=== PATIENT | female | born 1975 | race Caucasian/White ===

== ENCOUNTER → 2017-09-16 | Outpatient (CLI) | payer OTHER ==
[~2017-09-16] MED LIST: RT-ALBUTEROL SULF 2.5 MG/3 ML PRE-MIX VIAL INH ONE; RT-ALBUTEROL SULF 2.5 MG/3 ML PRE-MIX VIAL ONE
--- NOTE | 2017-09-16 12:57 | Diagnostic Imaging Report ---
EXAMINATION: Left knee radiographs, 2 views. COMPARISON: None. HISTORY: 41-year-old female, left knee pain. FINDINGS: There is no knee joint effusion. The joint spaces appear well preserved. No prominent osteophyte formation. There is no acute fracture. Bone mineralization and alignment are unremarkable. IMPRESSION: Unremarkable left knee radiographs. Dictated by: Dictated on workstation # [id number]
--- NOTE | 2017-09-16 12:59 | Diagnostic Imaging Report ---
INDICATION: Chronic pain. PA and lateral views of the chest were obtained. FINDINGS: The heart size, mediastinal configuration, and pulmonary vascularity are within normal limits. There is no pleural effusion, pneumothorax, or pneumonia. The osseous structures are unremarkable. IMPRESSION: No acute cardiopulmonary abnormality. Dictated by: Dictated on workstation # [id number]
--- NOTE | 2017-09-16 13:42 | Diagnostic Imaging Report ---
INDICATION: Chronic back pain. Three views were obtained. FINDINGS: The alignment of the lumbar spine is normal. The vertebral body heights are well maintained. There is no spondylolysis or spondylolisthesis. No fractures are identified. IMPRESSION: Unremarkable three-view lumbar spine series. Dictated by: Dictated on workstation # [id number]
== END ==
LOC: RT 10:04
PROVIDERS: ATTEND Surgery
DX: Z02.71 Encounter for disability determination (principal)
CPT/HCPCS: 71046; 72100; 73560; 94060

== ENCOUNTER 2018-08-23 00:07 | Emergency (ER) | payer MEDICAID, OTHER ==
[~2018-08-23] VITALS: Ht 160 cm; Wt 63.5 kg
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
--- NOTE | 2018-08-23 00:51 | NUR ---
someone said pt tongue piercing is in a baggie and in pt pocket.
--- NOTE | 2018-08-23 01:13 | NUR ---
police still here. they had pt in bathroom w/o handcuffs. pt been ok before that but came out of restroom running. pt made it to the w/r before police caught up. pt taken back to room by police and handcuffed again both hands. pt back in bed
--- NOTE | 2018-08-23 01:26 | NUR ---
pt remains alert gcs 15. police remains in the room. no acute sighns of dyspnea noted. pt hand cuffed. bp machine is 160/113 ausc hr 96 reg ausc resp 12 normal recheck temp 98.0 p ox r/a is 99.police are obtaining court order for blood draw.
--- NOTE | 2018-08-23 01:38 | NUR ---
i am doing d/c instructions and someone called lab for blood draw for police.
[2018-08-23 01:42] VITALS: BP 160/113
--- NOTE | 2018-08-23 01:42 | NUR ---
pt calm just enough time for pt listended to d/c instructions. d/c instructions to pt. told to read all papers. no scripts given. pt will be leaving ambulatory with police. pt knows f/u. i went over the handtyped by information on the chart. pt had no iv. i gave d/c instructions to police. i went over them with police as well.
--- NOTE | 2018-08-23 01:50 | NUR ---
police had to hold pt down for lab to draw blood. police leaving now with pt to assuming is senior care,
--- NOTE | 2018-08-23 05:59 | Diagnostic Imaging Report ---
EXAMINATION: Right fingers at 1249 AM INDICATION: Injury, hand pain An AP view of the hand and two views of the thumb were obtained. There are no prior studies available for comparison. There is no fracture, dislocation or acute bony abnormality evident. The soft tissues are unremarkable. IMPRESSION: There is no evidence for an acute bony abnormality. Dictated by: Dictated on workstation # [id number]
--- NOTE | 2018-08-23 06:08 | Diagnostic Imaging Report ---
PROCEDURE: CT head and CT cervical spine without contrast. TECHNIQUE: Multiple contiguous axial images were obtained through the brain and cervical spine without the use of intravenous contrast. Sagittal and coronal reformations through the cervical spine were then performed. Auto Exposure Controls were utilized during the CT exam to meet ALARA standards for radiation dose reduction. INDICATION: Fell, head and neck pain. There are no prior studies available for comparison. CT of the head: There is no mass, shift of midline or hemorrhage to suggest an acute intracranial abnormality. The normal tentorial blush is noted. The bone windows show no evidence for fracture or for destructive lesion. Orbits are symmetrical and within normal limits. The sinuses are generally clear. IMPRESSION: There is no evidence for an acute intracranial abnormality. CT cervical spine: The reconstructed sagittal images show the vertebral body heights and alignment to be generally within normal limits. The intervertebral spaces are fairly well-maintained. There is no sign of a high-grade central stenosis. There is no fracture or acute bony abnormality appreciated. There is no evidence for retropharyngeal edema. The thyroid gland is generally unremarkable. The lung apices are clear. IMPRESSION: There is no acute bony abnormality of the cervical spine. Dictated by: Dictated on workstation # [id number]
== END 2018-08-23 01:50 | disposition home or self-care (01) ==
LOC: EDUNIT# 00:07 → ER 00:09
DX: S61.011A Laceration without foreign body of right thumb without damage to nail, initial encounter (principal); S80.211A Abrasion, right knee, initial encounter; S80.212A Abrasion, left knee, initial encounter; S40.812A Abrasion of left upper arm, initial encounter; S00.412A Abrasion of left ear, initial encounter; F17.200 Nicotine dependence, unspecified, uncomplicated; Z88.5 Allergy status to narcotic agent; Z87.09 Personal history of other diseases of the respiratory system; X58.XXXA Exposure to other specified factors, initial encounter
CPT/HCPCS: 70450; 72125; 73140

== ENCOUNTER 2020-04-25 09:22 | Emergency (ER) | payer MEDICAID ==
[~2020-04-25] VITALS: Ht 160 cm; Wt 65.7 kg
[2020-04-25 10:08] LABS: BILIRUBIN,URINE NEGATIVE (NEGATIVE); CLARITY,URINE CLEAR; COLOR,URINE YELLOW; GLUCOSE, URINE (UA) NEGATIVE (NEGATIVE); KETONES,URINE 1+ (NEGATIVE); LEUKOCYTE ESTERASE ,URINE NEGATIVE (NEGATIVE); NITRITE,URINE NEGATIVE (NEGATIVE); PH,URINE 6.5 (5-9); PROTEIN,URINE NEGATIVE (NEGATIVE)
[2020-04-25 10:18] LABS: BACTERIA,URINE NEGATIVE /HPF
--- NOTE | 2020-04-25 10:44 | ED Chest Pain ---
General Chief Complaint: Cardiac/General Problems Stated Complaint: HIGH BP Nursing Triage Note: PT AMB TO TRIAGE WITH COMPLAINT OF HTN. STATES STARTED YESTERDAY. STATES TAKES NORVASC DAILY. STATES CALLED PCP. IS COMPLAINING OF SOA AND CP. Nursing Sepsis Screen: No Definite Risk Source: patient Exam Limitations: no limitations History of Present Illness Date Seen by Provider: Apr 25, 2020 Time Seen by Provider: 09:53 Initial Comments Patient presents ER by private conveyance chief complaint she is having some chest discomfort feels like pulling and cramping in her muscles just below her ribs as well as mild shortness of air and hypertension running around 210/120. This is been going on for the past couple months. She was started on 20 mg metoprolol tartrate and 2.5 mg amlodipine. She went to see her doctor yesterday and they gave her 2.5 mg of amlodipine in addition to her other medicine and told her if her blood pressure goes back up to come to the ER. She has no personal history of coronary disease but she does smoke cigarettes, have hy perlipidemia, hypertension and a significant primary family history of her father with early onset coronary disease in his 50s at age 64 from coronary disease. She is not having any nausea. So sometimes her pain radiates to her back. No diarrhea or abdominal surgeries. She denies a history of GERD or EGD. Patient has a history of chronic costochondritis since 2011. Allergies and Home Medications Allergies Coded Allergies: codeine (Unverified Allergy, Mild, ITCHING, 09/16/17) Patient Home Medication List Home Medication List Reviewed: Yes Review of Systems Review of Systems Constitutional: No chills, No diaphoresis EENTM: No Blurred Vision, No Double Vision Respiratory: Denies Cough, Denies Shortness of Air Cardiovascular: See HPI, Chest Pain; Denies Edema, Denies Irregular Heart Rate, Denies Lightheadedness, Denies Palpitations Gastrointestinal: Denies Abdomen Distended, Denies Abdominal Pain Genitourinary: Denies Burning, Denies Discharge Musculoskeletal: No back pain, No joint pain All Other Systems Reviewed Negative Unless Noted: Yes Past Qvnhjbz-Yrqghj-Omvwdf Hx Patient Social History Alcohol Use: Regular Use Alcohol Beverage of Choice: Cheap Liquor Smoking Status: Current Everyday Smoker Recent Infectious Disease Expo: No Recent Hopitalizations: No Immunizations Up To Date Tetanus Booster (TDap): Unknown Seasonal Allergies Seasonal Allergies: No Past Medical History Surgeries: Yes Cardiac: Yes Hypertension Neurological: No Genitourinary: No Gastrointestinal: No Musculoskeletal: No Endocrine: No HEENT: No Cancer: No Integumentary: No Physical Exam Vital Signs Vital Signs - First Documented 04/25/20 09:37 Temp 36.8 Pulse 76 Resp 20 B/P (MAP) 197/137 (157) Pulse Ox 96 O2 Delivery Room Air Capillary Refill : Less Than 3 Seconds Height, Weight, BMI Height: 5'3.00" Weight: 140lbs. oz. 63.642955tg; 25.00 BMI Method:Stated General Appearance: Anxious, Mild Distress HEENT: PERRL/EOMI, Pharynx Normal, Moist Mucous Membranes Neck: Full Range of Motion, Normal Inspection Respiratory: Chest Non Tender, Lungs Clear, Normal Breath Sounds, No Accessory Muscle Use, No Respiratory Distress Cardiovascular: Regular Rate, Rhythm, No Edema, Normal Peripheral Pulses Gastrointestinal: Normal Bowel Sounds, Non Tender, Soft Extremity: Normal Capillary Refill, Normal Inspection, No Pedal Edema Neurologic/Psychiatric: Alert, Oriented x3 Progress/Results/Core Measures Results/Orders Lab Results Laboratory Tests Test 04/25/20 10:01 04/25/20 10:50 04/25/20 16:03 Range/Units Urine Color YELLOW Urine Clarity CLEAR Urine pH 6.5 5-9 Urine Specific [employer] 1.015 L 1.016-1.022 Urine Protein NEGATIVE NEGATIVE Urine Glucose (UA) NEGATIVE NEGATIVE Urine Ketones 1+ H NEGATIVE Urine Nitrite NEGATIVE NEGATIVE Urine Bilirubin NEGATIVE NEGATIVE Urine Urobilinogen 0.2 < = 1.0 MG/DL Urine Leukocyte Esterase NEGATIVE NEGATIVE Urine RBC (Auto) NEGATIVE NEGATIVE Urine RBC NONE /HPF Urine WBC NONE /HPF Urine Squamous Epithelial Cells 2-5 /HPF Urine Crystals NONE /LPF Urine Bacteria NEGATIVE /HPF Urine Casts NONE /LPF Urine Mucus NEGATIVE /LPF Urine Culture Indicated NO Urine Opiates Screen NEGATIVE NEGATIVE Urine Oxycodone Screen NEGATIVE NEGATIVE Urine Methadone Screen NEGATIVE NEGATIVE Urine Propoxyphene Screen NEGATIVE NEGATIVE Urine Barbiturates Screen NEGATIVE NEGATIVE Ur Tricyclic Antidepressants Screen NEGATIVE NEGATIVE Urine Phencyclidine Screen NEGATIVE NEGATIVE Urine Amphetamines Screen NEGATIVE NEGATIVE Urine Methamphetamines Screen NEGATIVE NEGATIVE Urine Benzodiazepines Screen NEGATIVE NEGATIVE Urine Cocaine Screen NEGATIVE NEGATIVE Urine Cannabinoids Screen POSITIVE H NEGATIVE White Blood Count 5.3 4.3-11.0 10^3/uL Red Blood Count 4.07 3.80-5.11 10^6/uL Hemoglobin 13.9 11.5-16.0 g/dL Hematocrit 40 35-52 % Mean Corpuscular Volume 99 80-99 fL Mean Corpuscular Hemoglobin 34 25-34 pg Mean Corpuscular Hemoglobin Concent 34 32-36 g/dL Red Cell Distribution Width 13.7 10.0-14.5 % Platelet Count 308 130-400 10^3/uL Mean Platelet Volume 9.2 9.0-12.2 fL Immature Granulocyte % (Auto) 0 % Neutrophils (%) (Auto) 64 42-75 % Lymphocytes (%) (Auto) 20 12-44 % Monocytes (%) (Auto) 13 H 0-12 % Eosinophils (%) (Auto) 1 0-10 % Basophils (%) (Auto) 1 0-10 % Neutrophils # (Auto) 3.4 1.8-7.8 10^3/uL Lymphocytes # (Auto) 1.1 1.0-4.0 10^3/uL Monocytes # (Auto) 0.7 0.0-1.0 10^3/uL Eosinophils # (Auto) 0.1 0.0-0.3 10^3/uL Basophils # (Auto) 0.1 0.0-0.1 10^3/uL Immature Granulocyte # (Auto) 0.0 0.0-0.1 10^3/uL Prothrombin Time 13.1 12.2-14.7 SEC INR Comment 1.0 0.8-1.4 Activated Partial Thromboplast Time 27 24-35 SEC Sodium Level 134 L 135-145 MMOL/L Potassium Level 3.8 3.6-5.0 MMOL/L Chloride Level 98 98-107 MMOL/L Carbon Dioxide Level 20 L 21-32 MMOL/L Anion Gap 16 H 5-14 MMOL/L Blood Urea Nitrogen 8 7-18 MG/DL Creatinine 1.10 0.60-1.30 MG/DL Estimat Glomerular Filtration Rate 54 BUN/Creatinine Ratio 7 Glucose Level 75 70-105 MG/DL Calcium Level 9.3 8.5-10.1 MG/DL Corrected Calcium 8.9 8.5-10.1 MG/DL Magnesium Level 2.0 1.6-2.4 MG/DL Total Bilirubin 1.1 H 0.1-1.0 MG/DL Aspartate Amino Transf (AST/SGOT) 50 H 5-34 U/L Alanine Aminotransferase (ALT/SGPT) 36 0-55 U/L Alkaline Phosphatase 83 40-136 U/L Myoglobin 79.9 10.0-92.0 NG/ML Troponin I < 0.028 < 0.028 <0.028 NG/ML B-Type Natriuretic Peptide 94.7 <100.0 PG/ML Total Protein 8.2 6.4-8.2 GM/DL Albumin 4.5 3.2-4.5 GM/DL My Orders Orders - LIZBET HERNANDEZ Ua Culture If Indicated (04/25/20 09:23) Urine Bedside (04/25/20 09:23) Cbc With Automated Diff (04/25/20 10:36) Magnesium (04/25/20 10:36) Chest 1 View, Ap/Pa Only (04/25/20 10:36) Comprehensive Metabolic Panel (04/25/20 10:36) Myoglobin Serum (04/25/20 10:36) Protime With Inr (04/25/20 10:36) Partial Thromboplastin Time (04/25/20 10:36) O2 (04/25/20 10:36) Monitor-Rhythm Ecg Trace Only (04/25/20 10:36) Lipid Panel (04/26/20 06:00) Ed Iv/Invasive Line Start (04/25/20 10:36) BNP (04/25/20 10:36) Troponin I (04/25/20 10:36) Nitroglycerin 0.4 Mg Btl 25's (Nitrostat (04/25/20 10:45) Aspirin Chewable Tablet (Baby Aspirin Ch (04/25/20 10:45) Drug Screen Stat (Urine) (04/25/20 10:36) Hydralazine Injection (Apresoline Inject (04/25/20 12:30) Losartan Tablet (Cozaar Tablet) (04/25/20 16:00) Troponin I (04/25/20 15:54) Medications Given in ED Current Medications Medications Dose Ordered Sig/Marychuy Route Start Time Stop Time Status Last Admin Dose Admin Aspirin 324 mg ONCE ONCE PO 04/25/20 10:45 04/25/20 10:46 DC 04/25/20 10:52 324 MG Hydralazine HCl 10 mg ONCE ONCE IV 04/25/20 12:30 04/25/20 12:31 DC 04/25/20 13:31 10 MG Losartan Potassium 50 mg ONCE ONCE PO 04/25/20 16:00 04/25/20 16:01 DC 04/25/20 16:20 50 MG Nitroglycerin 0.4 mg UD PRN SL 04/25/20 10:45 04/25/20 10:52 0.4 MG Vital Signs/I&O 04/25/20 09:37 Temp 36.8 Pulse 76 Resp 20 B/P (MAP) 197/137 (157) Pulse Ox 96 O2 Delivery Room Air Blood Pressure Mean: 157 Progress Progress Note : Time: 10:41 Progress Note With a negative troponin her heart score is still 3 points. We may be able to do a rule out and have her follow-up with cardiology to pursue this angle. Other possibilities exist including costochondritis, her COPD however she is not having any wheezing presently, GERD or diaphragmatic/esophageal spasms. Plan to give her some aspirin and nitroglycerin. Her blood pressure is presently jackelyn vated around 170 systolic. We will put her on a monitor. Initial ECG Impression Date: Apr 25, 2020 Initial ECG Impression Time: 09:53 Initial ECG Rate: 91 Initial ECG Rhythm: Normal Sinus Initial ECG Intervals: Normal Initial ECG Impression: Normal, Nonspecific Changes Initial ECG Comparisson: No Previous ECG Available Comment Possible incomplete right bundle branch block with normal sinus rhythm and no clinically relevant ST changes. Insignificant less than half a block of ST depression in leads II, III and aVF. Diagnostic Imaging Diagonstic Imaging: Xray Plain Films/CT/US/NM/MRI: chest Comments [facility] [employer] [facility] [place], [place] NAME: DIMA HOLLIDAY [facility] REC#: [id number] PT STATUS: REG ER : 1975 PHYSICIAN: LIZBET HERNANDEZ MD ADMIT DATE: 04/25/20/ER Signed Date of Exam:04/25/20 CHEST 1 VIEW, AP/PA ONLY PATIENT HISTORY: Chest pain. TECHNIQUE: Single frontal view of the chest. COMPARISON: 09/16/2017 FINDINGS: The lung volumes are large. No focal consolidation is seen. No large pleural effusion or pneumothorax is seen. The cardiomediastinal silhouette is normal in size and contour. No acute osseous abnormality is seen. IMPRESSION: Large lung volumes with no acute pulmonary abnormality seen. Dictated by: Dictated on workstation # [id number] Dict: 04/25/20 1138 Trans: 04/25/20 1146 CV [id number] Interpreted by: MAGNOLIA RIOJAS MD Electronically signed by: MAGNOLIA RIOJAS MD 04/25/20 1146 Reviewed: Reviewed by Me Consults : Consulting Physician: MADELEINE ALAMO MD Consults Notes Discussed the case with cardiology and he agrees if she has a delta troponin is negative he would follow her up either tomorrow or in the clinic. He would like to start her on losartan 50 mg. We will give her a dose today. Departure Impression Primary Impression: Hypertension Qualified Codes: I10 - Essential (primary) hypertension Additional Impression: Chest discomfort Disposition: HOME, SELF-CARE Condition: Stable Departure-Patient Inst. Decision time for Depature: 16:45 Referrals: [facility] (PCP) Primary Care Physician HAIR DEVI APRN (Family) Primary Care Physician MADELEINE ALAMO MD Patient Instructions: Chest Pain (DC), High Blood Pressure in Adults Add. Discharge Instructions: For your high blood pressure begin to start losartan 50 mg daily. Continue taking your other blood pressure medicines as prescribed. Tomorrow morning at 8:[address] Alamo's clinic and request a follow-up appointment either Saturday or for further evaluation and management of your symptoms and blood pressure. If you are having significantly worsening chest pain, shortness of air or other worrisome symptoms then return to the ER for further management. Start taking the losartan tomorrow. All discharge instructions reviewed with patient and/or family. Voiced understanding. Scripts Losartan Potassium (Losartan Potassium) 50 Mg Tablet 50 MG PO DAILY for 14 Days, #14 TAB 0 Refills Prov: LIZBET HERNANDEZ 04/25/20 Work/School Note: Work Release Form Date Seen in the Emergency Department: Apr 25, 2020 Return to Work: Apr 27, 2020 Restrictions: No Restrictions Copy Copies To 1: MADELEINE ALAMO MD, TITUS J Apr 25, 2020 10:44
[2020-04-25] MEDS ORDERED: ASPIRIN 81 MG CHEW (CHILDREN'S ASA) PO ONE (10:45)
[2020-04-25] MEDS ORDERED: NITROGLYCERIN 0.4 MG SL TABS BTL 25'S SL PRN (10:45)
[2020-04-25 10:55] LABS: BASOPHILS # (AUTO) 0.1 10^3/uL (0.0-0.1); BASOPHILS % (AUTO) 1 % (0-10); EOSINOPHILS # (AUTO) 0.1 10^3/uL (0.0-0.3); EOSINOPHILS % (AUTO) 1 % (0-10); HEMATOCRIT 40 % (35-52); HEMOGLOBIN 13.9 g/dL (11.5-16.0); LYMPHOCYTES # (AUTO) 1.1 10^3/uL (1.0-4.0); LYMPHOCYTES % (AUTO) 20 % (12-44); MEAN CORPUSCULAR HEMOGLOBIN 34 pg (25-34); MEAN CORPUSCULAR HGB CONC 34 g/dL (32-36); MEAN CORPUSCULAR VOLUME 99 fL (80-99); MEAN PLATELET VOLUME 9.2 fL (9.0-12.2); MONOCYTES # (AUTO) 0.7 10^3/uL (0.0-1.0); MONOCYTES % (AUTO) 13 % (0-12); NEUTROPHILS # (AUTO) 3.4 10^3/uL (1.8-7.8); NEUTROPHILS % (AUTO) 64 % (42-75); PLATELET COUNT 308 10^3/uL (130-400); WHITE BLOOD COUNT 5.3 10^3/uL (4.3-11.0)
[2020-04-25 11:08] LABS: ALBUMIN 4.5 GM/DL (3.2-4.5)
[2020-04-25 11:09] LABS: POTASSIUM 3.8 MMOL/L (3.6-5.0)
[2020-04-25 11:10] LABS: CALCIUM 9.3 MG/DL (8.5-10.1)
[2020-04-25 11:11] LABS: PROTHROMBIN TIME PATIENT 13.1 SEC (12.2-14.7); TOTAL PROTEIN 8.2 GM/DL (6.4-8.2)
[2020-04-25 11:13] LABS: BILIRUBIN,TOTAL 1.1 MG/DL (0.1-1.0)
[2020-04-25 11:14] LABS: CREATININE SERUM 1.1 MG/DL (0.60-1.30)
--- NOTE | 2020-04-25 11:40 | Diagnostic Imaging Report ---
PATIENT HISTORY: Chest pain. TECHNIQUE: Single frontal view of the chest. COMPARISON: 09/16/2017 FINDINGS: The lung volumes are large. No focal consolidation is seen. No large pleural effusion or pneumothorax is seen. The cardiomediastinal silhouette is normal in size and contour. No acute osseous abnormality is seen. IMPRESSION: Large lung volumes with no acute pulmonary abnormality seen. Dictated by: Dictated on workstation # [id number]
[2020-04-25 11:56] LABS: AMPHETAMINE SCREEN, URINE NEGATIVE (NEGATIVE); BARBITURATE SCREEN URINE NEGATIVE (NEGATIVE); BENZODIAZEPINES SCREEN URINE NEGATIVE (NEGATIVE); CANNABINOID SCREEN, URINE POSITIVE (NEGATIVE); COCAINE SCREEN URINE NEGATIVE (NEGATIVE); METHADONE STAT NEGATIVE (NEGATIVE); METHAMPHETAMINE SCREEN URINE S NEGATIVE (NEGATIVE); OPIATE SCREEN URINE NEGATIVE (NEGATIVE); OXYCODONE STAT NEGATIVE (NEGATIVE); PROPOXYPHENE STAT NEGATIVE (NEGATIVE); TRICYCLIC ANTIDEPRESSANTS SCRE NEGATIVE (NEGATIVE)
[2020-04-25] MEDS ORDERED: hydrALAZINE (APESOLINE) 20 MG/ML VIAL IV ONE (12:30)
[2020-04-25] MEDS ORDERED: LOSARTAN 50 MG (COZAAR) TAB PO ONE (16:00)
[2020-04-25] MEDS ORDERED: LOSA50TA63 PO (16:48)
[2020-04-25 17:12] VITALS: BP 165/116
== END 2020-04-25 17:12 | disposition home or self-care (01) ==
LOC: EDUNIT# 09:22 → ER 09:23
DX: I10 Essential (primary) hypertension (principal); R07.89 Other chest pain; F41.9 Anxiety disorder, unspecified; F17.200 Nicotine dependence, unspecified, uncomplicated; Z88.5 Allergy status to narcotic agent
CPT/HCPCS: 36415; 71045; 80053; 80306; 81000; 83735; 83874; 83880; 84484; 84703; 85025; 85610; 85730; 93005; 93041

== ENCOUNTER 2020-04-25 19:36 | Emergency (ER) | payer MEDICAID ==
[~2020-04-25] VITALS: Ht 160 cm; Wt 65.7 kg
[~2020-04-25 19:36] MED LIST changes: +LOSA50TA63 PO; -RT-ALBUTEROL SULF 2.5 MG/3 ML PRE-MIX VIAL INH ONE; -RT-ALBUTEROL SULF 2.5 MG/3 ML PRE-MIX VIAL ONE
--- NOTE | 2020-04-25 20:07 | ED General ---
General Chief Complaint: Neurological Problems Stated Complaint: RINGING IN EARS, DIZZINESS,RAPID HB Source of Information: Patient Exam Limitations: No Limitations History of Present Illness Date Seen by Provider: Apr 25, 2020 Time Seen by Provider: 19:52 Initial Comments Patient is here with her with report of ringing in her ears, dizziness and feeling heart palpitations. She was seen here earlier for uncontrolled hypertension and had 2 sets of troponin drawn. She did receive hydralazine and was started on losartan. She was doing better at the time of discharge. On the way home, patient started feeling this disturbance and was somewhat anxious regarding that. Noted some numbness of the right hand and felt sweating. Symptoms were resolving at the time of arrival here but she was still quite anxious. Denies vision problems otherwise, slurred speech, facial droop or one- sided weakness. She did eat today without difficulty. She is to follow-up with cardiology tomorrow. Timing/Duration: 1 Hour, Changing Over Time, Gone Now Severity: Moderate Associated Systoms: No Chest Pain, No Cough; Diaphoresis; No Fever/Chills, No Headaches, No Nausea/Vomiting, No Shortness of Air; Weakness Allergies and Home Medications Allergies Coded Allergies: codeine (Unverified Allergy, Mild, ITCHING, 09/16/17) Home Medications Losartan Potassium 50 Mg Tablet, 50 MG PO DAILY Prescribed by: LIZBET HERNANDEZ on 04/25/20 4158 Patient Home Medication List Home Medication List Reviewed: Yes Review of Systems Review of Systems Constitutional: see HPI; No chills, No fever EENTM: see HPI; No blurred vision Respiratory: No cough, No short of breath Cardiovascular: No chest pain; palpitations Gastrointestinal: No abdominal pain, No nausea, No vomiting Genitourinary: no symptoms reported Musculoskeletal: no symptoms reported Skin: no symptoms reported Psychiatric/Neurological: Anxiety, Tingling All Other Systems Reviewed Negative Unless Noted: Yes Past Szhapfm-Vqexjs-Thccfs Hx Past Med/Social Hx: Reviewed Nursing Past Med/Soc Hx Patient Social History Alcohol Use: Regular Use Number of Drinks Today: CC Alcohol Beverage of Choice: Cheap Liquor Smoking Status: Current Everyday Smoker Type Used: Cigarettes 2nd Hand Smoke Exposure: No Recent Hopitalizations: No Immunizations Up To Date Tetanus Booster (TDap): Unknown Seasonal Allergies Seasonal Allergies: No Past Medical History Surgeries: Yes (r wrist ganglion cyst) Cardiac: Yes Hypertension Neurological: No Genitourinary: No Gastrointestinal: No Musculoskeletal: No Endocrine: No HEENT: No Cancer: No Psychosocial: No Integumentary: No Family Medical History Reviewed Nursing Family Hx Physical Exam Vital Signs Vital Signs - First Documented 04/25/20 19:42 Temp 36.5 Pulse 94 Resp 32 B/P (MAP) 127/92 (104) Pulse Ox 100 O2 Delivery Room Air Capillary Refill : Height, Weight, BMI Height: 5'3.00" Weight: 140lbs. oz. 63.455753li; 25.00 BMI Method:Stated General Appearance: WD/WN, Anxious (Mildly anxious initially but improved with exam to normal.) HEENT: PERRL/EOMI, Pharynx Normal Neck: Full Range of Motion, Normal Inspection, Non Tender, Supple Respiratory: Lungs Clear, Normal Breath Sounds Cardiovascular: Regular Rate, Rhythm, No Murmur, Other (Initially slightly tachycardic but improved to regular during conversation and exam) Back: Normal Inspection, No CVA Tenderness, No Vertebral Tenderness Extremity: Normal Range of Motion, Non Tender Neurologic/Psychiatric: Alert, Oriented x3, No Motor/Sensory Deficits, Normal Mood/Affect, factory representative II-XII Norm as Tested, Other (Stroke screen 0. Negative pronator drift. Mker-my-mulw normal. Sensation is normal throughout. Normal neuro exam overall.) Skin: Normal Color, Warm/Dry Progress/Results/Core Measures Suspected Sepsis SIRS Temperature: Pulse: Respiratory Rate: Laboratory Tests 04/25/20 20:05: White Blood Count 9.1 Blood Pressure / Mean: Laboratory Tests 04/25/20 20:05: Creatinine 1.37H, Platelet Count 305 Results/Orders Lab Results Laboratory Tests Test 04/25/20 20:05 Range/Units White Blood Count 9.1 4.3-11.0 10^3/uL Red Blood Count 4.12 3.80-5.11 10^6/uL Hemoglobin 13.9 11.5-16.0 g/dL Hematocrit 40 35-52 % Mean Corpuscular Volume 97 80-99 fL Mean Corpuscular Hemoglobin 34 25-34 pg Mean Corpuscular Hemoglobin Concent 35 32-36 g/dL Red Cell Distribution Width 13.7 10.0-14.5 % Platelet Count 305 130-400 10^3/uL Mean Platelet Volume 9.6 9.0-12.2 fL Immature Granulocyte % (Auto) 0 % Neutrophils (%) (Auto) 71 42-75 % Lymphocytes (%) (Auto) 18 12-44 % Monocytes (%) (Auto) 10 0-12 % Eosinophils (%) (Auto) 1 0-10 % Basophils (%) (Auto) 0 0-10 % Neutrophils # (Auto) 6.5 1.8-7.8 10^3/uL Lymphocytes # (Auto) 1.7 1.0-4.0 10^3/uL Monocytes # (Auto) 0.9 0.0-1.0 10^3/uL Eosinophils # (Auto) 0.1 0.0-0.3 10^3/uL Basophils # (Auto) 0.0 0.0-0.1 10^3/uL Immature Granulocyte # (Auto) 0.0 0.0-0.1 10^3/uL Sodium Level 134 L 135-145 MMOL/L Potassium Level 3.4 L 3.6-5.0 MMOL/L Chloride Level 98 98-107 MMOL/L Carbon Dioxide Level 18 L 21-32 MMOL/L Anion Gap 18 H 5-14 MMOL/L Blood Urea Nitrogen 10 7-18 MG/DL Creatinine 1.37 H 0.60-1.30 MG/DL Estimat Glomerular Filtration Rate 42 BUN/Creatinine Ratio 7 Glucose Level 104 70-105 MG/DL Calcium Level 9.8 8.5-10.1 MG/DL Troponin I < 0.028 <0.028 NG/ML My Orders Orders - EDGAR HOGAN MD Basic Metabolic Panel (04/25/20 19:54) Cbc With Automated Diff (04/25/20 19:54) Troponin I (04/25/20 19:54) Ekg Tracing (04/25/20 19:54) Vital Signs/I&O 04/25/20 19:42 Temp 36.5 Pulse 94 Resp 32 B/P (MAP) 127/92 (104) Pulse Ox 100 O2 Delivery Room Air Capillary Refill : Progress Note : Progress Note Seen and evaluated on arrival. Patient was able to walk in under her own power and was able to transfer to bed without difficulty. Initially somewhat anxious and slightly tachycardic but much better during the exam and conversation. Patient was found to have blood pressure 127/97 which is markedly lower than her blood pressures earlier today and she may be feeling the lower blood pressure. On explanation of this, patient was quite reassured. Stroke screen and evaluation done and no indications of current neurological deficit for indications for stroke activation. Symptoms likely related to felt blood pressure changes today as she is normally quite hypertensive. Overall feeling better currently. Given history and symptoms we will go ahead and check EKG and troponin with basic labs just to provide reassurance and further ensure stability and this will give us time to monitor her for any change in symptoms. This was discussed at length with the patient and her and both are in agreement. Again overall she is feeling much better currently. Monitor patient. 2106: Labs reviewed and no acute findings. Patient remains resolved throughout ED stay and states that she would like to go home and get something to eat. I think this is appropriate given current findings. Blood pressure currently 127/72 and she is feeling quite well. Patient's is in agreement. Discharged home with return precautions. Patient verbalized understanding of instructions and agreement with plan. ECG Initial ECG Impression Date: Apr 25, 2020 Initial ECG Impression Time: 19:56 Initial ECG Rate: 96 Initial ECG Rhythm: Normal Sinus Initial ECG Impression: Normal Initial ECG Comparisson: Unchanged Comment Sinus rhythm with normal axis. No evidence of ST elevation PA. Similar morphology to previous done earlier today although left atrial abnormality is less pronounced. Interpreted by me. Departure Impression Primary Impression: Labile blood pressure Disposition: 01 HOME, SELF-CARE Condition: Improved Departure-Patient Inst. Decision time for Depature: 21:08 Referrals: [facility] [place] Primary Care Physician HAIR DEVI APRN (Family) Primary Care Physician MADELEINE ALAMO MD Patient Instructions: High Blood Pressure (DC) Add. Discharge Instructions: All discharge instructions reviewed with patient and/or family. Voiced understanding. Continue home medications as previously prescribed. Make appointment with Dr. Alamo as discussed on previous visit. Follow-up with your primary doctor in a few days for recheck as well. Return for chest pain, breathing problems, weakness, vision or balance problems, difficulty with talking, facial droop or other concerns as needed. EDGAR HOGAN MD Apr 25, 2020 20:07
[2020-04-25 20:13] LABS: BASOPHILS % (AUTO) 0 % (0-10); EOSINOPHILS # (AUTO) 0.1 10^3/uL (0.0-0.3); EOSINOPHILS % (AUTO) 1 % (0-10); HEMATOCRIT 40 % (35-52); HEMOGLOBIN 13.9 g/dL (11.5-16.0); LYMPHOCYTES # (AUTO) 1.7 10^3/uL (1.0-4.0); LYMPHOCYTES % (AUTO) 18 % (12-44); MEAN CORPUSCULAR HEMOGLOBIN 34 pg (25-34); MEAN CORPUSCULAR HGB CONC 35 g/dL (32-36); MEAN CORPUSCULAR VOLUME 97 fL (80-99); MEAN PLATELET VOLUME 9.6 fL (9.0-12.2); MONOCYTES # (AUTO) 0.9 10^3/uL (0.0-1.0); MONOCYTES % (AUTO) 10 % (0-12); NEUTROPHILS # (AUTO) 6.5 10^3/uL (1.8-7.8); NEUTROPHILS % (AUTO) 71 % (42-75); PLATELET COUNT 305 10^3/uL (130-400); WHITE BLOOD COUNT 9.1 10^3/uL (4.3-11.0)
[2020-04-25 20:29] LABS: BUN/CREATININE RATIO 7; CALCIUM 9.8 MG/DL (8.5-10.1); CARBON DIOXIDE 18 MMOL/L (21-32); CHLORIDE 98 MMOL/L (98-107); CREATININE SERUM 1.37 MG/DL (0.60-1.30); GFR ESTIMATED 42; GLUCOSE 104 MG/DL (70-105); POTASSIUM 3.4 MMOL/L (3.6-5.0); SODIUM 134 MMOL/L (135-145)
[2020-04-25 21:11] VITALS: BP 118/71
== END 2020-04-25 21:11 | disposition home or self-care (01) ==
LOC: EDUNIT# 19:36 → ER 19:37
DX: I10 Essential (primary) hypertension (principal); F41.9 Anxiety disorder, unspecified; F17.210 Nicotine dependence, cigarettes, uncomplicated; Z88.5 Allergy status to narcotic agent
CPT/HCPCS: 36415; 80048; 84484; 85025; 93005

== ENCOUNTER → 2020-05-06 | Outpatient (CLI) | payer MEDICAID | LOC: CARD 11:48 | PROVIDERS: ATTEND Internal Medicine Cardiovascular Disease | DX: R07.9 Chest pain, unspecified (principal); I10 Essential (primary) hypertension | CPT/HCPCS: 93306 ==

== ENCOUNTER → 2020-05-18 | Outpatient (CLI) | payer MEDICAID ==
[~2020-05-18] VITALS: Ht 160 cm; Wt 68.0 kg
[~2020-05-18] MED LIST changes: +REGADENOSON 0.4 MG/5 ML SYR (LEXISCAN) IV ONE
[2020-05-18] MEDS: CATHETER FLUSH 10 ML SYR IV PRN ×2 (08:01→09:12)
[2020-05-18 09:11] VITALS: BP 140/93
--- NOTE | 2020-05-18 11:24 | Cardiology Stress Test Report ---
Stress Test Report Date of Procedure/Referring: Date of Procedure: May 18, 2020 PCP Madeleine Alamo MD Admitting Physician [facility] Indications: HTN Baseline Heart Rate: 65 Baseline Blood Pressure: Blood Pressure Systolic: 140 Blood Pressure Diastolic: 93 Baseline Vitals Vital Signs Date Time Temp Pulse Resp B/P (MAP) Pulse Ox O2 Delivery O2 Flow Rate FiO2 05/18/20 09:11 85 16 140/93 (109) 98 Room Air Baseline EKG: Baseline EKG: NSR Summary After explaining the procedure to the patient, she signed a consent and then brought to the stress nuclear laboratory. Patient received 0.4 mg Lexiscan for stress test, ECG, heart rate and blood pressure were monitored continuously. Resting and stress dose of radio tracer were injected, imaging was acquired and reviewed in short axis, horizontal long axis and vertical long axis views. TID: 0.96 SSS: 2 SDS: 2 EF: 69 1. Patient tolerated Lexiscan well 2. Breast attenuation, No significant ischemia or infarction on SPECT images 3. Normal left ventricular size, EF 69 percent MADELEINE ALAMO MD May 18, 2020 11:24
== END ==
LOC: CARD 08:00
PROVIDERS: ATTEND Internal Medicine Cardiovascular Disease
DX: I10 Essential (primary) hypertension (principal); R07.9 Chest pain, unspecified
CPT/HCPCS: 78452; 93017; A9502

== ENCOUNTER 2020-05-19 15:41 | Emergency (ER) | payer MEDICAID ==
[~2020-05-19] VITALS: Ht 160 cm; Wt 68.1 kg
[~2020-05-19 15:41] MED LIST changes: -REGADENOSON 0.4 MG/5 ML SYR (LEXISCAN) IV ONE
[2020-05-19] MEDS ORDERED: hydrALAZINE (APESOLINE) 20 MG/ML VIAL IV ONE (16:00)
[2020-05-19 16:26] LABS: BASOPHILS % (AUTO) 1 % (0-10); EOSINOPHILS # (AUTO) 0.1 10^3/uL (0.0-0.3); EOSINOPHILS % (AUTO) 2 % (0-10); HEMATOCRIT 39 % (35-52); HEMOGLOBIN 13.3 g/dL (11.5-16.0); LYMPHOCYTES # (AUTO) 1.8 10^3/uL (1.0-4.0); LYMPHOCYTES % (AUTO) 23 % (12-44); MEAN CORPUSCULAR HEMOGLOBIN 34 pg (25-34); MEAN CORPUSCULAR HGB CONC 35 g/dL (32-36); MEAN CORPUSCULAR VOLUME 98 fL (80-99); MEAN PLATELET VOLUME 10.1 fL (9.0-12.2); MONOCYTES # (AUTO) 0.8 10^3/uL (0.0-1.0); MONOCYTES % (AUTO) 10 % (0-12); NEUTROPHILS # (AUTO) 5.2 10^3/uL (1.8-7.8); NEUTROPHILS % (AUTO) 65 % (42-75); PLATELET COUNT 328 10^3/uL (130-400); WHITE BLOOD COUNT 7.9 10^3/uL (4.3-11.0)
--- NOTE | 2020-05-19 16:31 | ED General ---
General Chief Complaint: General Problems/Pain Stated Complaint: HIGH BLOOD PRESSURE Nursing Triage Note: AMB TO ED REPORTS IS ON B/P MEDS HER B/P THIS PM WAS 207/102 DENIES ANY CHEST PAIN Nursing Sepsis Screen: No Definite Risk History of Present Illness Date Seen by Provider: May 19, 2020 Time Seen by Provider: 15:50 Initial Comments 44 year old female Patient seen and evaluated, she has had several visits for cardiac issues over the last 2 to 3 weeks. She had an echocardiogram which was normal and a stress test yesterday that was normal. She reports elevated blood pressure at home, she has mild nausea r/t to GERD and is taking Prevacid but no vomiting and denies chest pain. She is taking blood pressure medications, but unsure what they are. She thinks one is Norvasc. She reports drinking a 1/2 pint of alcohol a day, she is decreasing her alcohol. Timing/Duration: Intermittent Severity: Mild Associated Systoms: Denies Symptoms; No Chest Pain, No Cough, No Diaphoresis, No Headaches, No Loss of Appetite, No Malaise, No Shortness of Air, No Weakness Allergies and Home Medications Allergies Coded Allergies: codeine (Unverified Allergy, Mild, ITCHING, 09/16/17) Home Medications Losartan Potassium 50 Mg Tablet, 50 MG PO DAILY Prescribed by: LIZBET HERNANDEZ on 04/25/20 6983 Patient Home Medication List Home Medication List Reviewed: Yes Review of Systems Review of Systems Constitutional: no symptoms reported Respiratory: no symptoms reported, see HPI; No dyspnea on exertion, No short of breath Cardiovascular: see HPI, other (Hypertension) All Other Systems Reviewed Negative Unless Noted: Yes Past Piksbci-Yhwqhu-Tdblec Hx Past Med/Social Hx: Reviewed Nursing Past Med/Soc Hx Patient Social History Alcohol Use: Denies Use Number of Drinks Today: CC Alcohol Beverage of Choice: Cheap Liquor Smoking Status: Former Smoker Type Used: Cigarettes 2nd Hand Smoke Exposure: No Recent Infectious Disease Expo: No Recent Hopitalizations: No Immunizations Up To Date Tetanus Booster (TDap): Unknown Seasonal Allergies Seasonal Allergies: No Past Medical History Surgeries: Yes (r wrist ganglion cyst) Cardiac: Yes Hypertension Neurological: No Genitourinary: No Gastrointestinal: No Musculoskeletal: No Endocrine: No HEENT: No Cancer: No Psychosocial: No Integumentary: No Physical Exam Vital Signs Vital Signs - First Documented 05/19/20 15:50 Temp 37.0 Pulse 60 Resp 18 B/P (MAP) 185/102 (129) Pulse Ox 97 O2 Delivery Room Air Capillary Refill : Less Than 3 Seconds Height, Weight, BMI Height: 5'3.00" Weight: 140lbs. oz. 63.701452xt; 26.00 BMI Method:Stated General Appearance: No Apparent Distress, WD/WN Eyes: Bilateral Eye Normal Inspection, Bilateral Eye PERRL, Bilateral Eye EOMI HEENT: PERRL/EOMI, TMs Normal, Normal ENT Inspection, Pharynx Normal Neck: Full Range of Motion, Normal Inspection, Non Tender, Supple Respiratory: Chest Non Tender, Lungs Clear, Normal Breath Sounds Cardiovascular: Regular Rate, Rhythm, No Edema, No Murmur, Normal Peripheral Pulses Gastrointestinal: Normal Bowel Sounds, Non Tender, Soft Extremity: Normal Capillary Refill, Normal Inspection, Normal Range of Motion, Non Tender, No Pedal Edema Neurologic/Psychiatric: Alert, Oriented x3, No Motor/Sensory Deficits, Normal Mood/Affect Skin: Normal Color, Warm/Dry Progress/Results/Core Measures Suspected Sepsis Recent Fever Within 48 Hours: No Infection Criteria Present: Suspected New Infection New/Unexplained Altered Menta: No Sepsis Screen: No Definite Risk SIRS Temperature: Pulse: 60 Respiratory Rate: 18 Laboratory Tests 05/19/20 16:15: White Blood Count 7.9 Blood Pressure 185 /102 Mean: 129 Laboratory Tests 05/19/20 16:15: Creatinine 1.06, INR Comment 0.9, Platelet Count 328, Total Bilirubin 0.6 Results/Orders Lab Results Laboratory Tests Test 05/19/20 16:15 Range/Units White Blood Count 7.9 4.3-11.0 10^3/uL Red Blood Count 3.93 3.80-5.11 10^6/uL Hemoglobin 13.3 11.5-16.0 g/dL Hematocrit 39 35-52 % Mean Corpuscular Volume 98 80-99 fL Mean Corpuscular Hemoglobin 34 25-34 pg Mean Corpuscular Hemoglobin Concent 35 32-36 g/dL Red Cell Distribution Width 14.1 10.0-14.5 % Platelet Count 328 130-400 10^3/uL Mean Platelet Volume 10.1 9.0-12.2 fL Immature Granulocyte % (Auto) 0 % Neutrophils (%) (Auto) 65 42-75 % Lymphocytes (%) (Auto) 23 12-44 % Monocytes (%) (Auto) 10 0-12 % Eosinophils (%) (Auto) 2 0-10 % Basophils (%) (Auto) 1 0-10 % Neutrophils # (Auto) 5.2 1.8-7.8 10^3/uL Lymphocytes # (Auto) 1.8 1.0-4.0 10^3/uL Monocytes # (Auto) 0.8 0.0-1.0 10^3/uL Eosinophils # (Auto) 0.1 0.0-0.3 10^3/uL Basophils # (Auto) 0.0 0.0-0.1 10^3/uL Immature Granulocyte # (Auto) 0.0 0.0-0.1 10^3/uL Prothrombin Time 12.9 12.2-14.7 SEC INR Comment 0.9 0.8-1.4 Activated Partial Thromboplast Time 28 24-35 SEC Sodium Level 137 135-145 MMOL/L Potassium Level 4.3 3.6-5.0 MMOL/L Chloride Level 100 98-107 MMOL/L Carbon Dioxide Level 22 21-32 MMOL/L Anion Gap 15 H 5-14 MMOL/L Blood Urea Nitrogen 11 7-18 MG/DL Creatinine 1.06 0.60-1.30 MG/DL Estimat Glomerular Filtration Rate 57 BUN/Creatinine Ratio 10 Glucose Level 77 70-105 MG/DL Calcium Level 9.7 8.5-10.1 MG/DL Corrected Calcium 8.5-10.1 MG/DL Magnesium Level 1.9 1.6-2.4 MG/DL Total Bilirubin 0.6 0.1-1.0 MG/DL Aspartate Amino Transf (AST/SGOT) 49 H 5-34 U/L Alanine Aminotransferase (ALT/SGPT) 52 0-55 U/L Alkaline Phosphatase 64 40-136 U/L Myoglobin 69.9 10.0-92.0 NG/ML Troponin I < 0.028 <0.028 NG/ML Total Protein 8.6 H 6.4-8.2 GM/DL Albumin 4.9 H 3.2-4.5 GM/DL My Orders Orders - CHING RANDOLPH Cbc With Automated Diff (05/19/20 15:57) Magnesium (05/19/20 15:57) Ekg Tracing (05/19/20 15:57) Comprehensive Metabolic Panel (05/19/20 15:57) Myoglobin Serum (05/19/20 15:57) Protime With Inr (05/19/20 15:57) Partial Thromboplastin Time (05/19/20 15:57) Monitor-Rhythm Ecg Trace Only (05/19/20 15:57) Ed Iv/Invasive Line Start (05/19/20 15:57) Troponin I (05/19/20 15:57) Hydralazine Injection (Apresoline Inject (05/19/20 16:00) Famotidine Tablet (Pepcid Tablet) (05/19/20 17:00) Medications Given in ED Current Medications Medications Dose Ordered Sig/Marychuy Route Start Time Stop Time Status Last Admin Dose Admin Famotidine 20 mg ONCE ONCE PO 05/19/20 17:00 05/19/20 17:01 DC 05/19/20 17:19 20 MG Hydralazine HCl 5 mg ONCE ONCE IV 05/19/20 16:00 05/19/20 16:01 DC 05/19/20 16:15 5 MG Vital Signs/I&O 05/19/20 05/19/20 15:50 16:44 Temp 37.0 Pulse 60 74 Resp 18 18 B/P (MAP) 185/102 (129) 173/93 (119) Pulse Ox 97 100 O2 Delivery Room Air Room Air Capillary Refill : Less Than 3 Seconds Blood Pressure Mean: 129 Progress Note : Time: 15:50 Progress Note patient seen and evaluated, will obtain labs and EKG. Hydralazine 5 mg IV. Will continue to monitor B/P. 1630 patient reports headache improving. Will give Pepcid 10 mg. 1700 B/P 160/90s, discussed with patient. We do not wish to lower her B/P too much at one time, it will require adjustments in her medications, until it is normalized. Encouraged follow up with her PCP and Credit Card Interviewer. Discharge instructions and return follow-up was discussed with the patient. All questions answered. ECG Initial ECG Impression Date: May 19, 2020 Initial ECG Impression Time: 16:03 Initial ECG Rate: 71 Initial ECG Rhythm: Normal Sinus Initial ECG Intervals: Normal Initial ECG Intervals MI 147; QRSD 116; QT 398; QTc 433 [place] P 63; QRS 46; T 39 Initial ECG Impression: Normal Initial ECG Comparisson: Unchanged Departure Impression Primary Impression: Labile blood pressure Disposition: 01 HOME, SELF-CARE Condition: Stable Departure-Patient Inst. Decision time for Depature: 17:00 Referrals: [facility] (PCP) Primary Care Physician HAIR DEVI APRN (Family) Primary Care Physician MADELEINE ALAMO MD Patient Instructions: High Blood Pressure (DC) Add. Discharge Instructions: Continue to take your blood pressure medication as prescribed. Take Pepcid 20 mg twice daily, over the counter. Take Excedrin Migraine as soon as you have a headache. Increase water intake, 16 ounces every 2 hours while awake. Avoid alcohol intake. Follow-up with your primary care provider if symptoms are not improving or worsen. Schedule follow-up appointment with Dr. Alamo. Return to the emergency department for new, urgent healthcare needs. All discharge instructions reviewed with patient and/or family. Voiced understanding. CHING RANDOLPH May 19, 2020 16:31
[2020-05-19 16:33] LABS: INR 0.9 (0.8-1.4); PROTHROMBIN TIME PATIENT 12.9 SEC (12.2-14.7)
[2020-05-19 16:42] LABS: ALANINE AMINOTRANSFERASE 52 U/L (0-55); ALBUMIN 4.9 GM/DL (3.2-4.5); ALKALINE PHOSPHATASE 64 U/L (40-136); BILIRUBIN,TOTAL 0.6 MG/DL (0.1-1.0); BUN/CREATININE RATIO 10; CALCIUM 9.7 MG/DL (8.5-10.1); CARBON DIOXIDE 22 MMOL/L (21-32); CHLORIDE 100 MMOL/L (98-107); CREATININE SERUM 1.06 MG/DL (0.60-1.30); GFR ESTIMATED 57; GLUCOSE 77 MG/DL (70-105); MAGNESIUM 1.9 MG/DL (1.6-2.4); POTASSIUM 4.3 MMOL/L (3.6-5.0); SODIUM 137 MMOL/L (135-145); TOTAL PROTEIN 8.6 GM/DL (6.4-8.2)
[2020-05-19] MEDS ORDERED: FAMOTIDINE 20 MG (PEPCID) TABLET PO ONE (17:00)
[2020-05-19 17:45] VITALS: BP 169/101
== END 2020-05-19 17:47 | disposition home or self-care (01) ==
LOC: EDUNIT# 15:41 → ER 15:43
DX: I10 Essential (primary) hypertension (principal); Z88.5 Allergy status to narcotic agent; Z87.891 Personal history of nicotine dependence
CPT/HCPCS: 36415; 80053; 83735; 83874; 84484; 85025; 85610; 85730; 93005

== ENCOUNTER → 2020-07-27 | Outpatient (CLI) | payer MEDICAID ==
[2020-07-27 16:52] LABS: BILIRUBIN,URINE NEGATIVE (NEGATIVE); CLARITY,URINE CLEAR; COLOR,URINE YELLOW; GLUCOSE, URINE (UA) NEGATIVE (NEGATIVE); KETONES,URINE NEGATIVE (NEGATIVE); LEUKOCYTE ESTERASE ,URINE NEGATIVE (NEGATIVE); NITRITE,URINE NEGATIVE (NEGATIVE); PROTEIN,URINE NEGATIVE (NEGATIVE)
[2020-07-27 17:08] LABS: AMORPHOUS SEDIMENT,UR RARE AMOR URATES /LPF; BACTERIA,URINE NEGATIVE /HPF; RBC,URINE 0-2 /HPF
== END ==
LOC: LAB 16:22
PROVIDERS: ATTEND Internal Medicine Cardiovascular Disease
DX: N39.0 Urinary tract infection, site not specified (principal); R00.2 Palpitations
CPT/HCPCS: 36415; 81000; 84155; 84165

== ENCOUNTER 2020-08-02 08:30 | Outpatient (RCR) | payer MEDICAID | END 2020-10-31 | disposition home or self-care (01) | LOC: CARD 08:30 | PROVIDERS: ATTEND Internal Medicine Cardiovascular Disease | DX: I49.9 Cardiac arrhythmia, unspecified (principal); R00.0 Tachycardia, unspecified | CPT/HCPCS: 93225; 93226 ==

== ENCOUNTER → 2020-08-09 | Outpatient (CLI) | payer MEDICAID ==
--- NOTE | 2020-08-10 10:03 | Diagnostic Imaging Report ---
EXAMINATION: Digital mammogram bilateral screening with CAD. INDICATION: Screening. COMPARISON: This is the patient's baseline study. PERSONAL HISTORY: At this time, there are no current complaints. FINDINGS: The fibroglandular tissue in both breasts is heterogeneously dense. This does limit the sensitivity of this exam. There is a small 6 mm benign-appearing nodular asymmetry in the 9 to 10 o'clock position of the right breast approximately 3 cm from the nipple. I suspect that this is a small cyst or perhaps a small benign solid lesion. I would recommend that ultrasound be performed to better characterize this finding. There is no primary or secondary sign of malignancy noted otherwise. IMPRESSION: Ultrasound would be recommended for further evaluation of the benign-appearing nodular density in the upper-outer quadrant of the right breast. ACR BI-RADS Category 0: Incomplete. (Needs additional imaging evaluation). Result letter will be mailed to the patient. Note: At least 10% of breast cancer is not imaged by mammography. Dictated by: Dictated on workstation # [id number]
== END ==
LOC: RAD 11:30
PROVIDERS: ATTEND Nurse Practitioner Family
DX: Z12.31 Encounter for screening mammogram for malignant neoplasm of breast (principal)
CPT/HCPCS: 77063; 77067

== ENCOUNTER → 2020-08-29 | Outpatient (CLI) | payer MEDICAID ==
--- NOTE | 2020-08-29 19:25 | Diagnostic Imaging Report ---
INDICATION: Right breast density. Study is performed for further evaluation. CORRELATION is made with screening mammogram from 08/10/2020. There is a small cyst at the 9:00 location of the right breast 3 to 4 mm in size on today's study, and likely accounting for the mammographic density. This shows no internal vascularity. No solid mass is detected. IMPRESSION: BI-RADS Category 2 Simple cyst at the 9:00 location right breast, likely accounting for the mammographic density. The patient may return to routine annual screening mammography. ACR BI-RADS Category 2: Benign findings. Result letter will be mailed to the patient. Note: At least 10% of breast cancer is not imaged by mammography. Dictated by: Dictated on workstation # [id number]
== END ==
LOC: RAD 14:15
PROVIDERS: ATTEND Nurse Practitioner Family
DX: N60.01 Solitary cyst of right breast (principal)

== ENCOUNTER 2021-02-05 18:38 | Inpatient (IN) | payer MEDICAID ==
[~2021-02-05] VITALS: Ht 160 cm; Wt 68.9 kg
[2021-02-05] MEDS ORDERED: fentaNYL INJ 100 MCG/2 ML AMP IVP STA ×2 (19:00→21:13)
[2021-02-05 19:08] LABS: HEMATOCRIT 35 % (35-52); HEMOGLOBIN 12.1 g/dL (11.5-16.0); MEAN CORPUSCULAR HEMOGLOBIN 34 pg (25-34); MEAN CORPUSCULAR HGB CONC 34 g/dL (32-36); MEAN CORPUSCULAR VOLUME 98 fL (80-99); MEAN PLATELET VOLUME 9.4 fL (9.0-12.2); PLATELET COUNT 419 10^3/uL (130-400)
[2021-02-05 19:29] LABS: ALANINE AMINOTRANSFERASE 21 U/L (0-55); ALBUMIN 4.1 GM/DL (3.2-4.5); ALKALINE PHOSPHATASE 55 U/L (40-136); BILIRUBIN,DIRECT < 0.1 MG/DL (0.0-0.3); BILIRUBIN,INDIRECT 0.1 MG/DL; BILIRUBIN,TOTAL 0.2 MG/DL (0.1-1.0); BUN/CREATININE RATIO 8; CALCIUM 9.2 MG/DL (8.5-10.1); CARBON DIOXIDE 20 MMOL/L (21-32); CHLORIDE 106 MMOL/L (98-107); CREATININE SERUM 0.96 MG/DL (0.60-1.30); GFR ESTIMATED 63; GLUCOSE 98 MG/DL (70-105); POTASSIUM 4.4 MMOL/L (3.6-5.0); SODIUM 140 MMOL/L (135-145); TOTAL PROTEIN 7.3 GM/DL (6.4-8.2)
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
[2021-02-05] MEDS ORDERED: HOLD METFORMIN - RECEIVED CONTRAST 20 ML VIAL IV SCH (20:15)
[2021-02-05] MEDS ORDERED: NS 100 ML (IVPB) BAG IV ONE (20:15)
[2021-02-05] MEDS ORDERED: IOHEXOL 350 MG/ML 100 ML (OMNIPAQUE 350) VIAL IV ONE (20:15)
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
[2021-02-05 21:37] LABS: BILIRUBIN,URINE NEGATIVE (NEGATIVE); CLARITY,URINE CLEAR; COLOR,URINE YELLOW; GLUCOSE, URINE (UA) NEGATIVE (NEGATIVE); KETONES,URINE NEGATIVE (NEGATIVE); LEUKOCYTE ESTERASE ,URINE NEGATIVE (NEGATIVE); NITRITE,URINE NEGATIVE (NEGATIVE); PROTEIN,URINE NEGATIVE (NEGATIVE)
[2021-02-05 21:44] LABS: AMPHETAMINE SCREEN, URINE NEGATIVE (NEGATIVE); BARBITURATE SCREEN URINE NEGATIVE (NEGATIVE); BENZODIAZEPINES SCREEN URINE NEGATIVE (NEGATIVE); CANNABINOID SCREEN, URINE POSITIVE (NEGATIVE); COCAINE SCREEN URINE NEGATIVE (NEGATIVE); METHADONE STAT NEGATIVE (NEGATIVE); METHAMPHETAMINE SCREEN URINE S NEGATIVE (NEGATIVE); OPIATE SCREEN URINE NEGATIVE (NEGATIVE); OXYCODONE STAT NEGATIVE (NEGATIVE); PROPOXYPHENE STAT NEGATIVE (NEGATIVE); TRICYCLIC ANTIDEPRESSANTS SCRE NEGATIVE (NEGATIVE)
[2021-02-05 21:46] LABS: BACTERIA,URINE NEGATIVE /HPF; SQUAMOUS EPITHELIAL CELL,UR 0-2 /HPF; WBC,URINE 0-2 /HPF
[2021-02-05] MEDS ORDERED: LACTATED RINGERS 1,000 ML IV ONE (22:59)
[2021-02-05] MEDS ORDERED: fentaNYL INJ 100 MCG/2 ML AMP ONE (23:26)
[2021-02-05] MEDS ORDERED: THIAMINE 100 MG (VITAMIN B-1) TAB PO ONE (23:30)
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
[2021-02-05] MEDS ORDERED: CITA40TA13 PO (23:39)
[2021-02-05] MEDS ORDERED: METO-333 PO (23:39)
[2021-02-05] MEDS ORDERED: DIPH25CA79 PO (23:39)
[2021-02-05] MEDS ORDERED: MONT-40 PO (23:39)
[2021-02-05] MEDS ORDERED: LORA10TA7 PO (23:39)
[2021-02-05] MEDS ORDERED: OMEP40CA6 PO (23:39)
[2021-02-05] MEDS ORDERED: ASPI-999 PO (23:39)
[2021-02-05] MEDS: LACTATED RINGERS 1,000 ML IV SCH (23:40)
[2021-02-05] MEDS: fentaNYL INJ 100 MCG/2 ML AMP IV PRN (23:40)
[2021-02-05] MEDS ORDERED: ONDANSETRON 4 MG/2 ML (SDV) Z0FRAN IV PRN (23:45)
[2021-02-06] MEDS ORDERED: NICOTINE 7 MG (NICODERM) PATCH TD ONE
[2021-02-06 00:10] VITALS: BP 104/50
[2021-02-06] MEDS ORDERED: RT-ALBUTEROL/IPRATROPIUM 3 ML (DUONEB) VIAL INH PRN (00:45)
[2021-02-06] MEDS: fentaNYL INJ 100 MCG/2 ML AMP IV PRN ×9 (01:39→23:43)
[2021-02-06] MEDS: RT-ALBUTEROL/IPRATROPIUM 3 ML (DUONEB) VIAL INH SCH ×4 (03:13→21:29)
[2021-02-06 05:21] LABS: BASOPHILS # (AUTO) 0.1 10^3/uL (0.0-0.1); BASOPHILS % (AUTO) 1 % (0-10); EOSINOPHILS # (AUTO) 0.1 10^3/uL (0.0-0.3); EOSINOPHILS % (AUTO) 1 % (0-10); HEMATOCRIT 34 % (35-52); HEMOGLOBIN 11.4 g/dL (11.5-16.0); LYMPHOCYTES # (AUTO) 1.4 10^3/uL (1.0-4.0); LYMPHOCYTES % (AUTO) 15 % (12-44); MEAN CORPUSCULAR HEMOGLOBIN 33 pg (25-34); MEAN CORPUSCULAR HGB CONC 33 g/dL (32-36); MEAN CORPUSCULAR VOLUME 98 fL (80-99); MEAN PLATELET VOLUME 10.2 fL (9.0-12.2); MONOCYTES # (AUTO) 0.7 10^3/uL (0.0-1.0); MONOCYTES % (AUTO) 7 % (0-12); NEUTROPHILS # (AUTO) 7.4 10^3/uL (1.8-7.8); NEUTROPHILS % (AUTO) 77 % (42-75); PLATELET COUNT 336 10^3/uL (130-400); WHITE BLOOD COUNT 9.7 10^3/uL (4.3-11.0)
[2021-02-06 05:43] LABS: POTASSIUM 4.1 MMOL/L (3.6-5.0)
[2021-02-06 05:44] LABS: CALCIUM 9.1 MG/DL (8.5-10.1)
[2021-02-06 05:47] LABS: BILIRUBIN,TOTAL 0.4 MG/DL (0.1-1.0)
[2021-02-06 05:49] LABS: CREATININE SERUM 0.79 MG/DL (0.60-1.30); PHOSPHORUS 3.6 MG/DL (2.3-4.7)
[2021-02-06 05:53] LABS: MAGNESIUM 1.8 MG/DL (1.6-2.4)
[2021-02-06] MEDS: POTASSIUM CL 10MEQ/50ML IVPB 50 ML IV SCH (05:58)
[2021-02-06] MEDS: KCL 20 MEQ TAB (K-DUR) PO SCH (05:58)
[2021-02-06] MEDS: MAGNESIUM 1 GM/100 ML IVPB 100 ML IV SCH (05:58)
--- NOTE | 2021-02-06 06:29 | Diagnostic Imaging Report ---
INDICATION: Follow-up pneumothorax. COMPARISON: 02/05/2021 FINDINGS: Single frontal radiographic view of the chest was obtained and demonstrates [id number] right apical pneumothorax estimated at 20%. There is no pneumothorax on the left. No large effusion is seen on either side. There is, however new dense opacification within the right lung base partially obscuring the right heart border. This is suspicious for right middle lobe atelectasis. Cardiac silhouette and pulmonary vasculature are within normal limits. Osseous structures show no gross acute abnormalities. IMPRESSION: 1. Redemonstration [id number] right-sided pneumothorax. 2. Interval development of probable right middle lobe atelectasis. Correlation with lateral view may be of benefit. Dictated by: Dictated on workstation # [id number]
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
[2021-02-06] MEDS: HYDROcodone/APAP 7.5 MG/325 MG (LORTAB, LORCET PLUS) TABLET PO PRN ×3 (11:04→22:47)
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
[2021-02-06] MEDS ORDERED: LOSA50TA63 PO ×2 (13:58)
[2021-02-06] MEDS ORDERED: ASPI-1238 PO (13:58)
[2021-02-06] MEDS ORDERED: BUDE10.26 INH (13:58)
[2021-02-06] MEDS ORDERED: ALBU18HF2 INH (13:58)
[2021-02-06] MEDS ORDERED: ATOR20TA66 PO (13:58)
[2021-02-06] MEDS: LACTATED RINGERS 1,000 ML IV SCH (17:20)
[2021-02-07] MEDS: RT-ALBUTEROL/IPRATROPIUM 3 ML (DUONEB) VIAL INH SCH ×4 (02:40→21:27)
[2021-02-07] MEDS: HYDROcodone/APAP 7.5 MG/325 MG (LORTAB, LORCET PLUS) TABLET PO PRN ×4 (03:02→16:28)
[2021-02-07] MEDS: fentaNYL INJ 100 MCG/2 ML AMP IV PRN ×2 (03:07→08:40)
[2021-02-07 04:53] LABS: BASOPHILS # (AUTO) 0.1 10^3/uL (0.0-0.1); BASOPHILS % (AUTO) 0 % (0-10); EOSINOPHILS % (AUTO) 0 % (0-10); HEMATOCRIT 35 % (35-52); HEMOGLOBIN 11.7 g/dL (11.5-16.0); LYMPHOCYTES % (AUTO) 6 % (12-44); MEAN CORPUSCULAR HEMOGLOBIN 32 pg (25-34); MEAN CORPUSCULAR HGB CONC 34 g/dL (32-36); MEAN CORPUSCULAR VOLUME 96 fL (80-99); MEAN PLATELET VOLUME 10.5 fL (9.0-12.2); MONOCYTES # (AUTO) 0.8 10^3/uL (0.0-1.0); MONOCYTES % (AUTO) 5 % (0-12); NEUTROPHILS # (AUTO) 13.8 10^3/uL (1.8-7.8); NEUTROPHILS % (AUTO) 88 % (42-75); PLATELET COUNT 282 10^3/uL (130-400); WHITE BLOOD COUNT 15.8 10^3/uL (4.3-11.0)
[2021-02-07 05:00] LABS: ALBUMIN 3.7 GM/DL (3.2-4.5); POTASSIUM 3.8 MMOL/L (3.6-5.0)
[2021-02-07 05:01] LABS: CALCIUM 9.5 MG/DL (8.5-10.1)
[2021-02-07 05:02] LABS: TOTAL PROTEIN 6.5 GM/DL (6.4-8.2)
[2021-02-07 05:04] LABS: BILIRUBIN,TOTAL 0.5 MG/DL (0.1-1.0)
[2021-02-07 05:05] LABS: PHOSPHORUS 2.5 MG/DL (2.3-4.7)
[2021-02-07 05:06] LABS: CREATININE SERUM 0.82 MG/DL (0.60-1.30)
[2021-02-07 05:09] LABS: MAGNESIUM 1.5 MG/DL (1.6-2.4)
[2021-02-07] MEDS: MAGNESIUM 1 GM/100 ML IVPB 100 ML IV SCH ×3 (05:44→06:11)
[2021-02-07] MEDS: KCL 20 MEQ TAB (K-DUR) PO SCH (05:44)
[2021-02-07] MEDS: POTASSIUM CL 10MEQ/50ML IVPB 50 ML IV SCH (05:44)
[2021-02-07 05:51] LABS: BAND NEUTROPHILS 10 %; EOSINOPHILS % (MANUAL) 1 %; LYMPHOCYTES % (MANUAL) 5 %; MONOCYTES % (MANUAL) 6 %; NEUTROPHILS % (MANUAL) 78 %
[2021-02-07] MEDS ORDERED: MAGNESIUM 1 GM/100 ML IVPB 200 ML IV ONE (06:07)
--- NOTE | 2021-02-07 06:52 | Diagnostic Imaging Report ---
PA and lateral chest at 604H. INDICATION: Pneumothorax The prior exam of 02/06/2021 noted the mild to moderate right-sided pneumothorax. Right lower lobe atelectasis/infiltrate and fluid was also seen. On this study the pneumothorax is again identified. The previous exam revealed that the distance from the bony thorax of the lung edge in the upper lung was approximately 1.8 cm. That finding is again evident and no different. However the basilar component of the pneumothorax does measure somewhat greater than on the prior exam. The distance from the bony thorax the lung edge is now 23.4 mm as opposed to 15.2 mm on the prior study. There has been some resolution of the atelectasis/infiltrate and fluid in the right lung base. There IS still a fair amount of residual density present in this area however. The left lower lobe atelectasis/infiltrate and fluid seen previously is unchanged. The heart is stable in size. The mediastinum is not widened. There is now radiopaque line extending longitudinally over the cervical and thoracic spine. According to Johnnie at the the patient's nursing station, there is no enteric tube in place. Consequently this radiopaque line may be extraneous to the patient. IMPRESSION: 1. There are mixed results. The basal component of the pneumothorax on the right is slightly greater than on the prior exam but there has been a decrease in the amount of atelectasis/infiltrate and fluid involving the right lung base. 2. The overall appearance of the chest is otherwise stable. Dictated by: Dictated on workstation # [id number]
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
[2021-02-07] MEDS: KETOROLAC 30 MG/ML VIAL IVP PRN ×2 (11:58→18:27)
[2021-02-07] MEDS: LACTATED RINGERS 1,000 ML IV SCH (17:12)
[2021-02-07] MEDS ORDERED: NICOTINE 14 MG (NICODERM) PATCH TD SCH (22:00)
[2021-02-08] MEDS: KETOROLAC 30 MG/ML VIAL IVP PRN ×2 (02:59→10:30)
[2021-02-08] MEDS: RT-ALBUTEROL/IPRATROPIUM 3 ML (DUONEB) VIAL INH SCH ×3 (03:02→15:30)
[2021-02-08 06:06] LABS: BASOPHILS % (AUTO) 0 % (0-10); EOSINOPHILS # (AUTO) 0.2 10^3/uL (0.0-0.3); EOSINOPHILS % (AUTO) 2 % (0-10); HEMATOCRIT 30 % (35-52); HEMOGLOBIN 10.1 g/dL (11.5-16.0); LYMPHOCYTES % (AUTO) 10 % (12-44); MEAN CORPUSCULAR HEMOGLOBIN 33 pg (25-34); MEAN CORPUSCULAR HGB CONC 34 g/dL (32-36); MEAN CORPUSCULAR VOLUME 95 fL (80-99); MEAN PLATELET VOLUME 10.5 fL (9.0-12.2); MONOCYTES # (AUTO) 0.6 10^3/uL (0.0-1.0); MONOCYTES % (AUTO) 6 % (0-12); NEUTROPHILS # (AUTO) 8.3 10^3/uL (1.8-7.8); NEUTROPHILS % (AUTO) 81 % (42-75); PLATELET COUNT 282 10^3/uL (130-400); WHITE BLOOD COUNT 10.2 10^3/uL (4.3-11.0)
[2021-02-08 06:22] LABS: ALBUMIN 3.3 GM/DL (3.2-4.5); POTASSIUM 3.8 MMOL/L (3.6-5.0)
[2021-02-08 06:24] LABS: CALCIUM 8.7 MG/DL (8.5-10.1)
[2021-02-08 06:25] LABS: TOTAL PROTEIN 6.1 GM/DL (6.4-8.2)
[2021-02-08 06:27] LABS: BILIRUBIN,TOTAL 0.4 MG/DL (0.1-1.0)
[2021-02-08 06:28] LABS: PHOSPHORUS 2.7 MG/DL (2.3-4.7)
[2021-02-08 06:32] LABS: MAGNESIUM 1.9 MG/DL (1.6-2.4)
[2021-02-08] MEDS: MAGNESIUM 1 GM/100 ML IVPB 100 ML IV SCH (06:36)
[2021-02-08] MEDS: POTASSIUM CL 10MEQ/50ML IVPB 50 ML IV SCH (06:36)
[2021-02-08] MEDS: KCL 20 MEQ TAB (K-DUR) PO SCH (06:36)
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
[2021-02-08] MEDS: HYDROcodone/APAP 7.5 MG/325 MG (LORTAB, LORCET PLUS) TABLET PO PRN ×2 (08:06)
[2021-02-08] MEDS: LACTATED RINGERS 1,000 ML IV SCH (11:40)
--- NOTE | 2021-02-08 12:14 | Diagnostic Imaging Report ---
INDICATION: Pneumothorax. TIME OF EXAM: 11:46 a.m. COMPARISON: Correlation is made with prior chest from 02/06/2021. FINDINGS: Right-sided pneumothorax does appear to be increased in size since two days earlier. This measures 2.8 cm at the apex compared with 1.8 cm. At the right base, this measures 2.9 cm compared with 1.5 cm. There continues to be collapse of right middle lobe. There is some airspace infiltrate in the left base. IMPRESSION: There has been some increase in size of right-sided pneumothorax when compared with examination two days earlier. Dictated by: Dictated on workstation # [id number]
[2021-02-08] MEDS: fentaNYL INJ 100 MCG/2 ML AMP IV PRN (13:40)
[2021-02-08] MEDS ORDERED: LIDOCAINE 1% INJ 20 ML 20 ML VIAL ONE (13:51)
--- NOTE | 2021-02-08 14:22 | Diagnostic Imaging Report ---
INDICATION: Chest tube placement. TIME OF EXAM: 02:03 p.m. COMPARISON: Correlation is made with study earlier same day. FINDINGS: A right-sided Thora-Vent chest tube has been placed. There has been a significant reduction in size of the right-sided pneumothorax. No significant residual pneumothorax is seen. There does continue to be some atelectasis in the right base. Left lung is clear. IMPRESSION: Thora-Vent chest tube placement with re-expansion of the right lung. Dictated by: Dictated on workstation # [id number]
--- NOTE | 2021-02-08 14:24 | Progress Note-Post Operative ---
Post-Operative Progess Note Surgeon (s)/General Practice (s) Surgeon CACHORRO MCKEON DO General Practice: none Pre-Operative Diagnosis Pneumothorax Post-Operative Diagnosis same Procedure & Operative Findings Date of Procedure 02/08/21 Procedure Performed/Findings Thoravent placement Anesthesia Type local lidocaine Estimated Blood Loss Estimated blood loss (mL): none Specimens/Packing Specimens Removed none CACHORRO MCKEON DO Feb 08, 2021 14:23
[2021-02-08] MEDS ORDERED: HYDR-34 PO (14:37)
--- NOTE | 2021-02-08 14:39 | Discharge Inst-Surgical ---
Discharge Inst-Surgical Depart Medication/Instructions New, Converted or Re-Newed RX: Transmitted to Pharmacy Patient Instructions Follow up Appt: Make appointment for 1 week. [phone] Instructions: No lifting greater than 20 pounds. No strenuous activity. May shower in 24 hours, no tub bath or soaking. Use incentive spirometer at home as directed. No Smoking Skin/Wound Care: Continue taking deep breaths and use Incentive spirometer. Symptoms to Report: Appetite Changes, Extremity Discoloration, Numbness/Tingling, Swelling Increased, Bleeding Excessive, Eyesight Changes, Pain Increased, Urine Color Change, Constipation(Persistent), Fever over 101 degree F, Pain/Pressure in chest, Urinating Difficulty, Cough Up/Vomit Blood, Heart Beat Irreg/Pounding, Pain/Pressure in jaw, Cramps in feet or legs, Lightheadedness, Pain/Pressure in shoulder, Diarrhea(Persistent), Memory Changes Suddenly, Questions/Concerns, Weight gain consecutive days, Dizziness/Fainting, Nausea/Vomiting, Shortness of Breath, Weight gain over 2 pounds If questions or concerns contact your physician Or seek help at emergency department. Activity Activity as Tolerated: Yes Driving Instructions: No Driving/Refer to Dr. Hoyos Discharge Diet: No Restrictions Diet After 24 Hours: Clear Liquid if Nauseous Symptoms to Report to Physicia: Shortness of Breath If Any Problems/Questions/Issu: Contact Your Physician, Go to Emergency Room Skin/Wound Care Infection Signs and Symptoms: Increased Swelling, Temperature Above 101 F Wound Care Comment: Get a CXR on Tuesday 02/13 and then come to my office. Bathing Instructions: CACHORRO Wells DO Feb 08, 2021 14:39
[2021-02-08 15:05] VITALS: BP 139/89
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
== END 2021-02-08 15:25 | disposition home or self-care (01) | DRG 200 ==
LOC: EDUNIT# 18:38 → ER 18:43 → ICU 21:13 → 4TH 02-07 14:15
PROVIDERS: ADMIT Surgery; ATTEND Surgery
PROC: 5A0935A Assistance with Respiratory Ventilation, Less than 24 Consecutive Hours, High Flow/Velocity Cannula (ICD-10-PCS; principal; 2021-02-05)
PROC: 0W9930Z Drainage of Right Pleural Cavity with Drainage Device, Percutaneous Approach (ICD-10-PCS; 2021-02-08)
DX: S27.0XXA Traumatic pneumothorax, initial encounter (principal); S22.41XA Multiple fractures of ribs, right side, initial encounter for closed fracture; S27.321A Contusion of lung, unilateral, initial encounter; S27.309A Unspecified injury of lung, unspecified, initial encounter; F10.129 Alcohol abuse with intoxication, unspecified; F12.90 Cannabis use, unspecified, uncomplicated; Y90.7 Blood alcohol level of 200-239 mg/100 ml; V47.6XXA Car passenger injured in collision with fixed or stationary object in traffic accident, initial encounter; I10 Essential (primary) hypertension; F41.9 Anxiety disorder, unspecified; F32.A Depression, unspecified; Z79.82 Long term (current) use of aspirin; Z79.899 Other long term (current) drug therapy; F17.210 Nicotine dependence, cigarettes, uncomplicated; E78.00 Pure hypercholesterolemia, unspecified
CPT/HCPCS: 36415; 70450; 71045; 71046; 71260; 72125; 74177; 80048; 80053; 80076; 80306; 80320; 81000; 82947; 83735; 84100; 84703; 85007; 85025; 85027; 86850; 86900; 86901; 87081; 93041; 94640; 94664; 94760

== ENCOUNTER → 2021-02-10 | Outpatient (CLI) | payer MEDICAID ==
[~2021-02-10] MED LIST changes: +ALBU18HF2 INH; +ASPI-1238 PO; +ASPI-999 PO; +ATOR20TA66 PO; +BUDE10.26 INH; +CITA40TA13 PO; +DIPH25CA79 PO; +HYDR-34 PO; +LORA10TA7 PO; +METO-333 PO; +MONT-40 PO; +OMEP40CA6 PO
--- NOTE | 2021-02-10 10:15 | Diagnostic Imaging Report ---
INDICATION: Pneumothorax followup. Upright chest shows normal heart size and vascularity. There is basilar atelectasis. Developing infiltrate at the left lung base is a possibility with increased opacification compared to the 02/08/2021 study. Thora vent chest tube remains in place on the right. No pneumothorax is seen. IMPRESSION: Since 02/08/2021 there has been improved aeration of the right lung base but increased opacification of the left lung base. There is no pneumothorax. Recommend continued followup. Dictated by: Dictated on workstation # [id number]
== END ==
LOC: RAD 09:27
PROVIDERS: ATTEND Surgery
DX: J93.9 Pneumothorax, unspecified (principal)
CPT/HCPCS: 71045

== ENCOUNTER 2021-04-11 14:43 | Outpatient (CLI) | payer SELFPAY ==
[~2021-04-11] VITALS: Ht 160.2 cm; Wt 59.4 kg
[2021-04-11] MEDS ORDERED: ceFAZolin INJECTION 1,000 MG VIAL IV ONE (16:15)
== END 2021-04-11 16:24 | disposition home or self-care (01) ==
LOC: PREOP 14:43
PROVIDERS: ATTEND Orthopaedic Surgery
DX: Z01.818 Encounter for other preprocedural examination (principal)

== ENCOUNTER 2021-04-12 06:57 | Day surgery (SDC) | payer SELFPAY ==
[~2021-04-12] VITALS: Ht 160.2 cm; Wt 59.4 kg
[2021-04-12] VITALS (14 sets, daily range): BP systolic 116–155; BP diastolic 78–99
[2021-04-12] MEDS ORDERED: ceFAZolin INJECTION 1,000 MG VIAL IV ONE (07:15)
[2021-04-12] MEDS ORDERED: oxyCODONE/APAP 5/325MG (PERCOCET 5) TABLET PO PRN (07:30)
[2021-04-12] MEDS ORDERED: BUPIVACAINE 0.5% 30 ML (SENSORCAINE) VIAL ONE (07:34)
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
--- NOTE | 2021-04-12 07:37 | Progress Note-Post Operative ---
Post-Operative Progess Note Surgeon (s)/Public Health Technician (s) Surgeon REUBEN HERNANDEZ MD Public Health Technician: Jude Hough Pre-Operative Diagnosis right bimalleolar ankle fracture Post-Operative Diagnosis right bimalleolar ankle fracture Procedure & Operative Findings Date of Procedure 04/12/21 Procedure Performed/Findings ORIF right medial and lateral malleoli Anesthesia Type GETA Estimated Blood Loss Estimated blood loss (mL): minimal Specimens/Packing Specimens Removed none Packing: none REUBEN HERNANDEZ MD Apr 12, 2021 07:37
[2021-04-12] MEDS: LACTATED RINGERS 1,000 ML IV PRN ×2 (07:39→09:37)
[2021-04-12] MEDS ORDERED: LIDOCAINE PF 2% 5 ML (XYLOCAINE) VIAL ONE (07:43)
[2021-04-12] MEDS ORDERED: fentaNYL INJ 100 MCG/2 ML AMP ONE (07:43)
[2021-04-12] MEDS ORDERED: MIDAZOLAM 2 MG/2 ML (VERSED) VIAL ONE (07:43)
[2021-04-12] MEDS ORDERED: proPOfol 200 MG/20 ML (DIPRIVAN) VIAL IV ONE (07:43)
[2021-04-12] MEDS ORDERED: SEVOFLURANE (ULTANE) 15 ML INHAL SOLN ONE ×2 (07:43→09:58)
[2021-04-12] MEDS ORDERED: ONDANSETRON 4 MG/2 ML (SDV) Z0FRAN ONE (07:43)
[2021-04-12] MEDS ORDERED: SUCCINYLCHOLINE INJ 20 MG/1 ML 10 ML VIAL ONE (08:59)
[2021-04-12] MEDS ORDERED: HYDROmorphone 2 MG/ML VIAL (DILAUDID) ONE (09:07)
[2021-04-12] MEDS ORDERED: HYDROmorphone 2 MG/ML VIAL (DILAUDID) IV ONE (10:00)
[2021-04-12] MEDS ORDERED: ONDANSETRON 4 MG/2 ML (SDV) Z0FRAN IVP PRN (10:00)
--- NOTE | 2021-04-12 10:15 | Diagnostic Imaging Report ---
Indication: Fluoroscopy for right ankle ORIF. Fluoroscopy was provided in the OR during right ankle ORIF. 9 seconds of fluoroscopic time was utilized. 3 images were obtained demonstrating lateral plate and numerous screws transfixing the distal fibula. There are 2 partially threaded screws transfixing the medial malleolus. Alignment of the ankle is anatomic. IMPRESSION: Fluoroscopy for right ankle ORIF. Dictated by: Dictated on workstation # [id number]
--- NOTE | 2021-04-12 15:04 | Anesthesia-General Post-Op ---
General Patient Condition Mental Status/LOC: Same as Preop Cardiovascular: Satisfactory Nausea/Vomiting: Absent Respiratory: Satisfactory Pain: Controlled Complications: Absent Post Op Complications Complications None Follow Up Care/Instructions Patient Instructions None needed. Anesthesia/Patient Condition Patient Condition Patient is doing well, no complaints, stable vital signs, no apparent adverse anesthesia problems. No complications reported per nursing. D/C home per [facility] [place] Criteria: Yes RENETTA DESOUZA CRNA Apr 12, 2021 15:04
--- NOTE | 2021-04-12 15:11 | OPERATIVE REPORT ---
DATE OF SERVICE: 04/12/2021 PREOPERATIVE DIAGNOSIS: Right bimalleolar ankle fracture. POSTOPERATIVE DIAGNOSIS: Right bimalleolar ankle fracture. PROCEDURES PERFORMED: 1. Open reduction and internal fixation of the right medial malleolus. 2. Open reduction and internal fixation of right lateral malleolus. SURGEON: Julio Cesar Hernandez MD. PLANE RUNNER: Jude Torres, who assisted throughout the procedure and closed the incisions. ANESTHESIA: General endotracheal by Alexandro Trinidad CRNA. TOURNIQUET TIME: Approximately 40 minutes at 300 mmHg. ESTIMATED BLOOD LOSS: Minimal. DRAINS: None. COMPLICATIONS: None. POSTOPERATIVE PLAN: Use protected ambulation for 4 to 6 weeks. DISPOSITION: The patient was transferred to recovery room awake and stable condition. MATERIALS: Synthes one-third tubular plate laterally with two 4.0 cancellous screws medially. DESCRIPTION OF PROCEDURE: After the risks and benefits of the procedure were discussed and questions were answered, an informed consent was signed and placed on chart and the operative site was confirmed in the preoperative holding area initialed by the surgeon. The patient was then transferred to the operating room. After adequate levels of general endotracheal anesthetic were obtained, a timeout was called, confirming the operative site. The right lower extremity was prepped and draped in the usual sterile fashion with the leg elevated, the tourniquet was inflated to 300 mmHg. Standard anterior approach was utilized. The fracture site was exposed laterally and reduced anatomically. A 3.5 lag screw was placed perpendicular to the fracture with excellent purchase obtained. A 7-hole one-third tubular plate was then placed with three cortical screws proximally and three cancellous screws distally, all with excellent purchase. Fluoroscopy in AP, lateral and oblique planes revealed anatomic reduction of the fracture with a well-placed hardware and a longitudinal incision was then made over the medial malleolus. The underlying soft tissues were carefully dissected. The fracture was reduced anatomically and two 4.0 partially threaded cancellous screws were placed both with excellent purchase. Fluoroscopy in AP, lateral and oblique planes revealed anatomic reduction of the fracture with a well-placed hardware. The mortise and syndesmosis were intact. The hardware was well positioned. Both wounds were copiously irrigated laterally. A 0 Vicryl was used to the deep subcutaneous tissue medially and laterally. A 3-0 Vicryl was used for the superficial subcutaneous tissue and skin was closed with 4-0 nylon in a vertical mattress interrupted fashion. The incisions were infiltrated with plain Marcaine. A soft dressing and boot were applied. The tourniquet was deflated. The patient was transferred to the recovery room awake and in a stable condition. Job ID: [id number] DocumentID: [id number] Dictated Date: 04/12/2021 09:48:22 De [employer]cer Kit Assembler Date: 04/12/2021 15:11:13 Dictated By: JULIO CESAR HERNANDEZ MD
== END 2021-04-12 12:13 | disposition home or self-care (01) ==
LOC: SDC 06:57
PROVIDERS: ATTEND Orthopaedic Surgery
DX: S82.841A Displaced bimalleolar fracture of right lower leg, initial encounter for closed fracture (principal); I10 Essential (primary) hypertension; J45.909 Unspecified asthma, uncomplicated; K21.9 Gastro-esophageal reflux disease without esophagitis; F17.210 Nicotine dependence, cigarettes, uncomplicated; Z79.899 Other long term (current) drug therapy
CPT/HCPCS: 27814; 76000; 84703; 87081; C1713 ×3